=== PATIENT | female | born 1940 | race Caucasian/White ===

== ENCOUNTER 2019-09-18 12:58 | Emergency (ER) | payer OTHER ==
[~2019-09-18] VITALS: Ht 165.1 cm; Wt 71.2 kg
[2019-09-18 13:00] VITALS: Ht 165.1 cm; Wt 71.2 kg
[2019-09-18 14:04] LABS: CHLORIDE SERUM 102 mmol/L (98-107); CREATININE SERUM 1.1 mg/dL (0.6-1.0); GLUCOSE SERUM 151 mg/dL (74-106); POTASSIUM SERUM 4.1 mmol/L (3.5-5.1); SODIUM SERUM 140 mmol/L (136-145)
[2019-09-18 14:11] LABS: BASOPHIL % 0.4 % (0-2); PLATELET COUNT 155 x10^3mcL (130-400); RED CELL DISTRIBUTION WIDTH 13.8 % (11.5-14.5)
[2019-09-18 14:13] LABS: ALBUMIN 3.4 g/dL (3.4-5.0); ALKALINE PHOSPHATASE 68 U/L (46-116); ALT/SGPT 18 U/L (14-59); AST/SGOT 10 U/L (15-37); BILIRUBIN TOTAL 0.42 mg/dL (0.20-1.00); TOTAL PROTEIN, SERUM 6.2 g/dL (6.4-8.2)
[2019-09-18 14:41] LABS: UA SPECIFIC GRAVITY 1.025 (1.005-1.035); microscopic required? YES; urine erythrocyte 1+ (NEGATIVE)
[2019-09-18 15:14] VITALS: BP 122/46
== END 2019-09-18 15:14 | disposition home or self-care (01) ==
LOC: ED 12:58
PROVIDERS: Emergency Medicine
DX: R42 Dizziness and giddiness (principal); R55 Syncope and collapse; J44.9 Chronic obstructive pulmonary disease, unspecified
CPT/HCPCS: 36415; 82962; Q0092

== ENCOUNTER 2020-03-18 05:54 | Observation (INO) | payer OTHER ==
--- NOTE | 2020-03-16 11:30 | NUR ---
DR JOHNSON'S OFFICE CONTACTED WITH URINALYSIS REPORT. NO NEW ORDERS AT THIS TIME.
[~2020-03-18] VITALS: Ht 165.1 cm; Wt 72.6 kg
[~2020-03-18 05:54] MED LIST: ASPIR 8181 MG PO; ATORVASTATIN CA10 M1 PO; FLUOXETINE60 MG PO; INCRUSE EL62.5 MCG/A IH; PRILOSEC OTC20 M1 PO; TOPROL XL50 MG PO; V5 PO; VOLTAREN100 GM TOP
[2020-03-18 06:29] VITALS: BP 188/84
--- NOTE | 2020-03-18 12:59 | NUR ---
AT 1205 - RECEIVED PATIENT FROM OR NURSE. 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 SETTLED IN ROOM, ORIENTED TO SURROUNDINGS. PATIENT IS AWAKE AND ORIENTED X 4. VS WNL. O2 SAT 99% ON 2L VIA NC. DRESSING TO L KNEE IS DRY AND INTACT WITH ICE PACK VIA POLAR ICE MACHINE IN PLACE. AT 1250 - COMMENCED IV INFUSION OF LR AT 75 ML/HR. PATIENT GIVEN SCHEDULED DOSE OF TORADOL PER EMAR. CALL LIGHT WITHIN REACH.
--- NOTE | 2020-03-18 14:21 | NUR ---
RESTING QUIETLY. DENIES ANY PAIN. DRESSING REMAINS DRY WITH ICE TO KNEE.
[2020-03-18 14:32] VITALS: BP 127/49
[2020-03-18 14:52] VITALS: Ht 165.1 cm; Wt 72.6 kg
[2020-03-18 16:27] VITALS: BP 150/63
--- NOTE | 2020-03-18 17:53 | NUR ---
PATIENT AMBULATED TO BATHROOM AND BACK TO BED USING WALKER. TOLERATED WELL. NO C/O PAIN. SNOW SITTING UP IN BED EATING DINNER. SCD TO RLE IN PLACE. ICE PACK TO L KNEE.
--- NOTE | 2020-03-18 18:59 | NUR ---
PATIENT HAS BEEN SEEN BY PHYSICAL THERAPY. VSS. IV INFUSING LR AT 75 ML/HR. HAS EATEN DINNER. DRESSING REMAINS DRY AND POLAR ICE TO KNEE IN PLACE. PAIN UNDER CONTROL. WILL ENDORSE CARE TO NIGHT NURSE.
--- NOTE | 2020-03-18 19:15 | NUR ---
RECEIVED PATIENT FROM DAY NURSE. MED-SURG PATIENT. PATIENT RESTING IN BED A/O X4, VERBALLY RESPONSIVE.BREATHING E/U, ON ROOM AIR, DENIES SOB. ABD SOFT AND ROUND, C/O OF NAUSEA, WILL GIVE ZOFRAN PRN PER EMAR. NO EDEMA NOTED. DARK SKIN COLORATION ON RUE. S/P L KNEE REPLACEMENT, DRESSED WTIH DERMABOND, METHALAX AND BETY BANDAGE, CDI, L KNEE KEPT COOL WITH POLAR MACHINE, L KNEE ELEVATED ON PILLOW, AMBULATORY, USES WALKER WHICH IS LOCATED @ BEDSIDE, PT EVAL PENDING. C/O OF L KNEE PAIN LEVEL 4/10, PATIENT IS SCHEDULED FOR TORADOL @ 2100 PER EMAR. CALL LIGHT WITHIN REACH, BED IN LOWEST POSITION. WILL CONTINUE TO MONITOR.
--- NOTE | 2020-03-18 19:57 | NUR ---
P.T. NOTES P.T. EVAL COMPLETED; WILL BENEFIT W/ P.T. POST ACUTE STAY.
[2020-03-18 20:03] VITALS: BP 151/55
--- NOTE | 2020-03-18 20:50 | NUR ---
REPLACED ICE IN POLAR BOX CONNECTED TO PATIENT'S L KNEE DRESSING. CALL LIGHT WITHIN REACH, BED IN LOWEST POSITION. WILL CONTINUE TO MONITOR.
--- NOTE | 2020-03-19 00:30 | NUR ---
PATIENT RESTING IN BED WITH EYES CLOSED. EVEN CHEST RISE AND FALL. SHOWS NO SIGN OF PAIN OR DISTRESS. REPLACED ICE IN POLAR BOX CONNECTED TO L KNEE DRESSING. CALL LIGHT WITHIN REACH, BED IN LOWEST POSITION. WILL CONTINUE TO MONTIOR.
[2020-03-19 05:47] VITALS: BP 149/57
--- NOTE | 2020-03-19 06:20 | NUR ---
PATIENT RESTING IN BED WITH EYES CLOSED. EVEN CHEST RISE AND FALL. SHOWS NO SIGN OF PAIN OR DISTRESS. CALL LIGHT WITHIN REACH, WALKER @ BEDSIDE, ALL NEEDS MET AND SAFETY PRECAUTIONS MAINTAINED THROUGHOUT SHIFT.
[2020-03-19 07:44] LABS: BASOPHIL % 0.1 % (0-2); PLATELET COUNT 141 x10^3mcL (130-400)
[2020-03-19 08:08] LABS: RED CELL DISTRIBUTION WIDTH 15.1 % (11.5-14.5)
--- NOTE | 2020-03-19 08:11 | NUR ---
AT 0715 - RECEIVED PATIENT FROM NIGHT NURSE. AWAKE, ALERT AND ORIENTED X 4. RESPIRATIONS REGULAR. DRESSING TO L KNEE IS INTACT. POLAR ICE MACHINE REFILLED WITH FRESH ICE. IV INFUSING LR AT 75 ML/HR. AT 0755 - SAT UP IN BED FOR BREAKFAST. C/O MILD PAIN IN L KNEE. WILL MEDICATE PER EMAR.
[2020-03-19 08:12] VITALS: BP 108/58
[2020-03-19 08:49] LABS: CALCIUM 8.4 mg/dL (8.5-10.1); CHLORIDE SERUM 98 mmol/L (98-107); GLUCOSE SERUM 107 mg/dL (74-106); POTASSIUM SERUM 4.1 mmol/L (3.5-5.1); SODIUM SERUM 134 mmol/L (136-145)
--- NOTE | 2020-03-19 09:33 | NUR ---
PATIENT ASSISTED TO BATHROOM AND BACK TO BED. C/O MODERATE PAIN. PATIENT WANTED TO TAKE ONLY TYLANOL EARLIER BUT NOW AGREED TO TAKE A STRONGER MEDICATION. MEDICATED WITH OXYCODONE 5 MG PER EMAR.
--- NOTE | 2020-03-19 12:31 | NUR ---
RECEIVED CALL FROM DR RICH. UPDATED ON PATIENT. RECEIVED ORDERS TO DISCHARGE HOME TODAY. PATIENT ALREADY HAS WALKER AT HOME AND FOLLOW-UP APPOINTMENT AND DISCHARGE MEDS HAD PREVIOUSLY BEEN ARRANGED BY DR RICH. AFTER SPEAKING WITH PATIENT, SHE DECIDED SHE WOULD LIKE TO WAIT FOR TODAY'S PHYSICAL THERAPY SESSION BEFORE DISCHARGING HOME.
[2020-03-19 12:37] VITALS: BP 108/58
--- NOTE | 2020-03-19 15:17 | NUR ---
AT 1330 - PATIENT SEEN BY PHYSICAL THERAPIST. PATIENT HAS CALLED HER DAUGHTER TO COME AND GIVE HER A RIDE HOME. IV CATHETER REMOVED INTACT. DRESSED AND PREPARED FOR DISCHARGE. SAT IN CHAIR. PATIENT AMBULATES USING WALKER. REMINDED TO ALWAYS USE WALKER. AT 1350 - PRINTED DISCHARGE INSTRUCTIONS GIVEN AND EXPLAINED TO PATIENT. POLAR ICE MACHINE PACKED FOR PATIENT. AT 1430 - DISCHARGED HOME WITH DAUGHTER. TAKEN TO CAR IN WHEELCHAIR BY NURSE. EXPLAINED ALL INSTRUCTIONS TO PATIENT'S DAUGHTER.
== END 2020-03-19 14:41 | disposition home or self-care (01) ==
LOC: DS 05:54 → OR 07:30 → DS 07:30 → MU 12:40 → DS 15:08 → MU 15:10
PROVIDERS: ADMIT Orthopaedic Surgery; ATTEND Orthopaedic Surgery
DX: M17.12 Unilateral primary osteoarthritis, left knee (principal)
CPT/HCPCS: 94150; 97112-GP; 97116-GP; 97530-GP; C1713; C1776; G0378; J0690; J1170; J1885; J2270; J2274; J2405; J2704; J3010; J3490; J7120; Q0092